=== PATIENT | male | born 1990 | race Two or more races ===

== ENCOUNTER 2019-10-06 16:25 | Emergency (ER) | payer OTHER ==
[~2019-10-06] VITALS: Ht 160 cm; Wt 83.0 kg
== END 2019-10-06 20:06 | disposition home or self-care (01) ==
LOC: ER 16:25
DX: B34.9 Viral infection, unspecified (principal); J09.X2 Influenza due to identified novel influenza A virus with other respiratory manifestations

== ENCOUNTER 2025-08-10 10:35 | Emergency (ER) | payer OTHER ==
[~2025-08-10 10:35] MED LIST: INTESTINEX680 M1 PO; PEPCID AC20 MG PO
[2025-08-10] MEDS ORDERED: KETOROLAC TROMETHAMINE 60 MG VIAL IM ONE (12:45)
[2025-08-10] MEDS ORDERED: NORFLEX100MG PO (14:44)
== END 2025-08-10 16:05 | disposition home or self-care (01) ==
LOC: ER 10:36
DX: G89.11 Acute pain due to trauma (principal); M79.642 Pain in left hand

== ENCOUNTER 2025-08-17 13:03 | Outpatient (CLI) | payer OTHER ==
[~2025-08-17 13:03] MED LIST changes: +NORFLEX100MG PO
== END 2025-08-17 13:09 | disposition home or self-care (01) ==
LOC: RAD 13:03
PROVIDERS: ATTEND Orthopaedic Surgery
DX: M79.642 Pain in left hand (principal); M79.645 Pain in left finger(s)